=== PATIENT | male | born 1975 | race Caucasian/White ===

== ENCOUNTER 2021-03-22 19:05 | Emergency (ER) | payer SELFPAY ==
[~2021-03-22] VITALS: Ht 177.8 cm; Wt 91.0 kg
[2021-03-22] MEDS ORDERED: ACETAMINOPHEN 325MG TABLET PO ONE (22:00)
[2021-03-23 00:36] LABS: BASOPHILS % 0.6 % (0.0-2.0); EOSINOPHILS % 1.3 % (0.0-5.0); HEMATOCRIT. 41.9 % (42.0-52.0); HEMOGLOBIN. 15.1 g/dL (14.0-18.0); MEAN CORPUSCULAR HEMOGLOBIN 33.4 pg (28.0-32.0); MONOCYTES % 7.7 % (2.0-8.0); NEUTROPHILS % 59.4 % (40.0-76.0); PLATELET 100 x1000/uL (130-400); RED BLOOD CELL COUNT 4.51 mill/uL (4.7-6.1); RED CELL DISTRIBUTION WIDTH 13.8 % (11.6-14.6)
[2021-03-23 00:43] LABS: CHLORIDE 109 mEq/L (98-107)
[2021-03-23] MEDS ORDERED: IBUPROFEN 600MG TABLET PO SCH (00:45)
[2021-03-23 04:00] VITALS: BP 133/82
== END 2021-03-23 04:27 | disposition home or self-care (01) ==
LOC: ER 19:20
DX: R05 Cough (principal); R50.9 Fever, unspecified; K76.0 Fatty (change of) liver, not elsewhere classified; Z20.822 Contact with and (suspected) exposure to COVID-19
CPT/HCPCS: 36415; 71045; 76705; 80053; 83880; 84484; 85025; 87070; 87430; 93005; 99285; C9803; U0003; U0005